=== PATIENT | male | born 1985 | race Caucasian/White ===

== ENCOUNTER 2021-05-20 12:16 | Emergency (ER) | payer OTHER, SELFPAY ==
--- NOTE | ~2021-05-20 | XR_ITS ---
EXAMINATION: XR SHOULDER, LEFT CLINICAL INFORMATION: Question dislocation COMPARISON: None TECHNIQUE: Three views of the left shoulder. FINDINGS: Visualized portion of the proximal left humerus demonstrate no fracture. Humeral head demonstrates good articulation with the glenoid fossa. Acromioclavicular joint is normal in appearance. Visualized left-sided ribs and lung parenchyma are unremarkable. XR/XR shoulder LT min 2V IMPRESSION: No fracture or dislocation of the left shoulder.
[2021-05-20 12:19] VITALS: BP 121/72; PULSE 70; RESP 18; TEMP 36.7; O2SAT 100; BMI 25.8
--- NOTE | 2021-05-20 13:44 | ED_ITS ---
HPI - Extremity Problem General Chief complaint: Extremity Injury, Upper Stated complaint: dislocated shoulder Time Seen by Provider: 05/20/21 13:44 History of Present Illness HPI Narrative: Patient 35 years old presents today with having pain to the left shoulder area. Patient fell in the rain yesterday. Complained that the shoulder might have been dislocated. He felt that he might have popped it back in. No numbness in the hand. No finger numbness. No weakness. No alteration in sensation there is pain over the shoulder. Worsen with movement. Patient from home. No head injury. No neck pain. No loss of consciousness. No nausea no vomiting. Patient from home. Related Data Previous Rx's Medication Instructions Recorded ibuprofen 400 mg tablet 400 mg PO Q6H PRN #20 tab 05/20/21 Allergies Allergy/AdvReac Type Severity Reaction Status Date / Time amoxicillin [From AUGMENTIN] Allergy Unknown UNKNOWN Unverified 03/24/20 15:38 cefaclor [From CECLOR] Allergy Unknown UNKNOWN Unverified 03/24/20 15:38 clavulanic acid Allergy Unknown UNKNOWN Unverified 03/24/20 15:38 [From AUGMENTIN] erythromycin base Allergy Unknown UNKNOWN Unverified 03/24/20 15:38 [ERYTHROMYCIN BASE] Review of Systems Review of Systems: No fever no chills no cough no congestion or upper resp iratory symptoms No nausea no vomiting no head injury All systems reviewed otherwise negative Yes all other systems are reviewed and are negative [facility] Past Medical History Attestation statement: The following information was validated with the patient. Social History Social History Advance Directives: No Advance Directives Information Provided: No Physical Exam Vital Signs: Vital Signs: Last Vital Signs Temp 98.1 F 05/20/21 12:19 Pulse 70 05/20/21 12:19 Resp 18 05/20/21 12:19 BP 121/72 05/20/21 12:19 Pulse Ox 100 05/20/21 12:19 Body Mass Index 25.8 Appearance: Alert. Oriented X3. No acute distress. Eyes: Pupils equal, round and reactive to light. ENT: Pharynx normal. Neck: Normal inspection. Neck supple. No lymph nodes noted. No crepitus CVS: Normal heart rate and rhythm. Pulses normal. Normal S1 and S2 Respiratory: No respiratory distress. Breath sounds normal. No Wheezing. No rales Abdomen: Soft and nontender. No rigidity. No distention. good BS x4 Skin: Skin warm and dry. Normal skin color. Normal skin turgor. Extremities: No lower extremity edema. Neurovascular intact to all extremities. No Lacerations. No Rash. Sensation over the left shoulder grossly intact. Sensation over the radial ulnar and median nerve intact. Good range of motion at the elbow at the wrist at the hands. Capillary refill less than 2 seconds pulse 2 + at radial. There is pain on movement of the left shoulder. On AP duction 80 duction internal and external rotation. Neuro: Oriented X 3. No motor deficit. No sensory deficit. Moving all extermities. No slurred speech MDM - Extremity (Nontraumatic) MDM Narrative Medical decision making narrative: X-ray did not show any acute fracture. There is no gross deformity on exam. There is no dislocation on x-ray. Will discharge patient home. Question if patient reduced the shoulder himself. Will have patient follow-up with orthopedics on an outpatient basis. Patient is in stable condition. Discharge Plan Discharge Clinical Impression: Shoulder sprain Patient Disposition: Home, Self-Care Instructions: Shoulder Sprain (ED) Prescriptions: New ibuprofen 400 mg tablet 400 mg PO Q6H PRN (Reason: pain) Qty: 20 RF: 0 Referrals: Denisha Ballard MD [Physician] - 2 days
== END 2021-05-20 14:00 | disposition home or self-care (01) ==
PROVIDERS: Emergency Provider Emergency Medicine Emergency Medical Services
DX: S43.402A Unspecified sprain of left shoulder joint, initial encounter (principal); W01.0XXA Fall on same level from slipping, tripping and stumbling without subsequent striking against object, initial encounter; Y93.9 Activity, unspecified; Y92.9 Unspecified place or not applicable; Y99.9 Unspecified external cause status; Z79.899 Other long term (current) drug therapy
CPT/HCPCS: 73030; 99283; 99284

== ENCOUNTER → 2021-05-30 08:29 | Outpatient (BNVA) | payer OTHER, SELFPAY | PROVIDERS: Visit Provider Physician Assistant | DX: M25.312 Other instability, left shoulder (principal) | CPT/HCPCS: 99202 ==

== ENCOUNTER 2021-06-21 13:55 | Outpatient (REF) | payer OTHER, SELFPAY ==
--- NOTE | ~2021-06-21 | FL_ITS ---
PROCEDURE: FL XR ARTHROGRAM SHOULDER, LEFT CLINICAL INFORMATION: Left shoulder instability. COMPARISON: None TECHNIQUE: Left shoulder intra-articular injection for MRI. FINDINGS: Informed consent was obtained from the patient prior to the procedure. During this process, the procedure and potential alternatives were explained, along with the intended outcome and benefits. The risks of the procedure, as well as the risk of not doing the procedure, were discussed. The patient was given the opportunity to ask questions regarding the procedure and appeared competent to make medical decisions. A signed consent form which documents this discussion was placed in the medical record. Using sterile technique and fluoroscopic guidance, a 22-gauge spinal needle was directed down onto the inferior aspect of the left glenohumeral joint. Small amount of contrast was injected demonstrating intra-articular positioning of the needle. Following that, 20 mL of a mixture of 20 mL of sterile saline and 0.05 mL of Gadavist was placed into the shoulder joint. Patient tolerated the procedure without difficulty. FLUOROSCOPY TIME: 1 minute. DOSE AREA PRODUCT: 2.718 Gy-cm2 (ernandez-centimeter squared). FL/FL arthrogram shoulder LT IMPRESSION: Left shoulder intra-articular injection for MRI.
--- NOTE | ~2021-06-21 | MR_ITS ---
EXAMINATION: MR SHOULDER WITH CONTRAST, LEFT CLINICAL INFORMATION: Left shoulder pain and instability. Dislocation on 05/19/2021. COMPARISON: Left shoulder radiographs dated 05/20/2021 and fluoroscopic arthrography done earlier the same day. TECHNIQUE: MRI of the shoulder was performed following the intra-articular administration of a dilute gadolinium-containing solution (arthrogram) on a high-field scanner. FINDINGS: ROTATOR CUFF: No measurable rotator cuff tendon defect. No muscle atrophy or fatty infiltration. BICEPS: Normal. CORACOACROMIAL ARCH: The undersurface of the acromion is curved with no subacromial spur. The acromioclavicular joint is normal. LABRUM/CAPSULE: There is a displaced fracture at the anteroinferior aspect of the glenoid and extending through the inferior glenoid. The fracture fragment is displaced inferiorly and measures up to 2.7 cm in craniocaudal dimension. There is associated attenuation and irregularity of the overlying labrum as well as labral tissue associated with the displaced fracture. Findings are consistent with a bony Bankart lesion. There is a nondisplaced tear through the posterior and posteroinferior labrum. The joint capsule is intact. GLENOHUMERAL JOINT/MARROW: Cortical depression at the posterolateral aspect of the humeral head measuring 2.2 x 3 cm with mild underlying marrow edema, consistent with a Hill-Sachs deformity. Humeral head currently well seated within the glenoid. MR/MR shoulder LT w con IMPRESSION: Findings consistent with prior anteroinferior humeral head dislocation including an osseous Bankart lesion with a fracture fragment displaced inferiorly measuring up to 2.7 cm. There is an associated labral tissue with the osseous fragment as well as irregular tearing of the nondisplaced labral tissue. Prominent Hill-Sachs deformity with mild underlying marrow edema. Humeral head currently well seated within the glenoid. Additional nondisplaced undersurface tear of the posterior and posteroinferior labrum.
== END 2021-06-21 13:56 | disposition home or self-care (01) ==
LOC: HO.XRAY 13:55
PROVIDERS: Visit Provider Physician Assistant
DX: M25.312 Other instability, left shoulder (principal)
CPT/HCPCS: 23350; 73040; 73222; A9585

== ENCOUNTER 2021-06-29 08:15 | Outpatient (REF) | payer OTHER, SELFPAY ==
[2021-06-29 11:49] LABS: COVID-19 Test Positive (Negative)
== END 2021-06-29 08:16 | disposition home or self-care (01) ==
LOC: HO.LAB 08:15
PROVIDERS: Visit Provider Internal Medicine
DX: Z20.822 Contact with and (suspected) exposure to COVID-19 (principal)
CPT/HCPCS: 36415; 87635; C9803

== ENCOUNTER 2022-03-09 19:15 | Emergency (ER) | payer OTHER, SELFPAY ==
--- NOTE | 2022-03-09 | ECG_ITS ---
Test Reason : sob Blood Pressure : / mmHG Vent. Rate : 075 BPM Atrial Rate : 075 BPM P-R Int : 184 ms QRS Dur : 090 ms QT Int : 368 ms P-R-T Axes : 062 064 035 degrees QTc Int : 410 ms Normal sinus rhythm Normal ECG No previous ECGs available Referred By: Generic ED Physician Electronically Signed By:JALYN PINEDA
--- NOTE | ~2022-03-09 | CT_ITS ---
EXAMINATION: CT CHEST WITHOUT CONTRAST CLINICAL INFORMATION: Cough. Shortness of breath. COMPARISON: Chest x-ray dated 03/09/2022 TECHNIQUE: Multidetector volumetric CT imaging of the chest was done. Axial MIP volume rendering provided. Sagittal and coronal reformatted images were obtained. This CT examination was performed using dose optimization techniques as appropriate, variously including the following: *Automated exposure control *Adjustment of mA and/or kV according to patient size (this includes techniques or standardized protocols for targeted exams where dose is matched to indication/reason for exam; i.e. extremities or head) *Use of iterative reconstruction technique DLP: 329 mGy-cm FINDINGS: LUNGS: Scattered secretions within the right lower lobe bronchioles with accompanying centrilobular and tree-in-bud nodular opacities suggestive of infectious and/or aspiration bronchiolitis. No pneumothorax. MEDIASTINUM: The mediastinum is normal. PLEURA: There is no pleural effusion. No pleural mass or thickening. AXILLA: No lymphadenopathy. UPPER ABDOMEN: Unremarkable. OSSEOUS STRUCTURES: Unremarkable. CT/CT chest wo IV con IMPRESSION: Findings compatible with infectious and/or aspiration bronchiolitis within the right lower lobe.
--- NOTE | ~2022-03-09 | XR_ITS ---
EXAMINATION: XR CHEST CLINICAL INFORMATION: Shortness of breath with chest pain COMPARISON: None TECHNIQUE: 2 views of the chest were obtained. FINDINGS: Some mild increase infrahilar opacity in the right. Area of infiltrate here would need to be considered. Left lung is grossly clear. The cardiac silhouette is within normal limits. The hilar regions do not appear pathologically enlarged. The cardiac silhouette is within normal limits. XR/XR chest 2V IMPRESSION: Findings suggest infrahilar infiltrate on the right. Follow-up films would be recommended after treatment to establish baseline.
[2022-03-09 19:25] VITALS: BP 114/67; PULSE 72; RESP 18; TEMP 36; O2SAT 99; BMI 26.5
[2022-03-09 19:48] LABS: MANUAL DIFF FLAG NO
[2022-03-09 19:51] LABS: Basophils Percent Auto 0.3 % (0-2); Eosinophils Percent Auto 0.2 % (0-4); Hematocrit 42.2 % (42.0-52.0); Hemoglobin 14.2 g/dl (14.0-18.0); Imm Gran Abs Auto 0.03 X10*3/uL (0.00-0.03); Imm Gran Pct Auto 0.3 % (0.0-0.4); Lymphocytes Absolute Auto 1.3 X10*3/uL (1.2-4.9); Lymphocytes Percent Auto 12.9 % (20-40); Mean Corpuscular HGB Conc 33.6 g/dl (31.0-36.0); Mean Corpuscular Hemoglobin 31.1 pg (27.0-33.0); Mean Corpuscular Volume 92.3 fL (80.0-98.0); Mean Platelet Volume 8.5 fL (9.4-12.4); Monocytes Absolute Auto 0.6 X10*3/uL (0.1-1.2); Monocytes Percent Auto 5.4 % (2-11); Neutrophils Absolute Auto 8.3 x10*3/uL (2.0-8.3); Neutrophils Percent Auto 80.9 % (45-73); Platelet Count 266 X10*3/uL (160-400); Red Blood Count 4.57 X10*6/uL (4.60-5.80); Red Cell Distribution Width 12.3 % (11.0-16.0); White Blood Count 10.3 X10*3/uL (4.8-10.8)
[2022-03-09 20:08] LABS: Alanine Aminotransferase 17 U/L (0-40); Albumin Level 4.3 g/dL (3.5-5.0); Alkaline Phosphatase 74 U/L (39-117); Anion Gap 17 (12-20); Aspartate Amino Transferase 16 U/L (5-37); Bilirubin Total 0.9 mg/dL (0.0-1.0); Blood Urea Nitrogen 12 mg/dL (9-16); Calcium 9.6 mg/dL (8.4-10.2); Carbon Dioxide 28 mmol/L (22-29); Chloride 102 mmol/L (96-108); Creatinine Clr Calc Pharmacy 105.4; Estimated Glomerular Filt Rate > 60; Glucose Random 137 mg/dL (60-115); Potassium 3.9 mmol/L (3.3-5.1); Sodium 143 mmol/L (135-145); Total Protein 7.4 g/dL (6.5-8.0)
[2022-03-09 21:56] VITALS: BP 121/69; PULSE 63; RESP 18; TEMP 36.3; O2SAT 98
[2022-03-09 22:05] LABS: Troponin-I High Sensitivity < 3.5 ng/L (<3.5-35.0)
--- NOTE | 2022-03-09 23:13 | PC.NURSE ---
COVID swab and d-dimer collected and sent as ordered
[2022-03-09 23:30] LABS: D Dimer High Sensitivity < 150 NG/ML
[2022-03-09] MEDS: Benzonatate 100 MG CAPSULE 200 MG PO (23:34)
--- NOTE | 2022-03-09 23:34 | ED.CHESTPAIN ---
HPI - Chest Pain General Chief Complaint: Chest Pain Stated Complaint: Chest pain Time Seen by Provider: 03/09/22 22:52 Source: patient Mode of arrival: ambulatory History of Present Illness HPI narrative: 36-year-old male without significant past medical history who arrives with complaints right-sided chest discomfort but has not been associated with fever, chills, unexplained weight loss, history of cigarette smoking and is up-to-date on all vaccines. 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 Patient states that he was seen on Saturday and the chest x-ray was negative, he was then started on steroids since Saturday but states that his cough has just progressively worsened despite treating it with honey and Delsym. Otherwise, patient does not any complaints other than poor sleeping due to the nighttime cough. Patient states that he feels short of breath and at times feels that he is unable to complete sentences. Related Data Previous Rx's Medication Instructions Recorded ibuprofen 400 mg tablet 400 mg PO Q6H PRN pain #20 tabs 05/20/21 benzonatate 200 mg capsule 200 mg PO TID PRN cough #14 caps 03/10/22 doxycycline hyclate 100 mg tablet 100 mg PO BID 5 days #10 tabs 03/10/22 Allergies Allergy/AdvReac Type Severity Reaction Status Date / Time amoxicillin [From AUGMENTIN] Allergy Unknown UNKNOWN Verified 05/30/21 08:38 cefaclor [From CECLOR] Allergy Unknown UNKNOWN Verified 05/30/21 08:38 clavulanic acid Allergy Unknown UNKNOWN Verified 05/30/21 08:38 [From AUGMENTIN] erythromycin base Allergy Unknown UNKNOWN Verified 05/30/21 08:38 [ERYTHROMYCIN BASE] cefprozil Allergy Unknown Verified 03/09/22 19:25 Review of Systems Review of Systems: Pertinent positives and negatives as stated in HPI 10 point review of systems is otherwise negative. PMFSH Past Medical History Source: nursing notes reviewed Surgical History H/O lateral meniscus repair of left knee H/O lateral meniscus repair of right knee Social History Social History Alcohol intake: current Alcohol intake frequency: holidays/special occasions only Patient Tobacco Use Status: Never used Tobacco Use of substances other than those prescribed or required for medical reasons: No Advance Directives: No Current occupational status: employed Current occupation: lt handed[employer] Physical Exam Vital Signs: Vital Signs: Last Vital Signs Temp 97.3 F 03/09/22 21:56 Pulse 63 03/10/22 00:21 Resp 14 03/10/22 00:21 BP 113/65 03/10/22 00:21 Pulse Ox 96 03/10/22 00:21 O2 Del Method 03/10/22 00:21 BMI result Body Mass Index 26.5 VITAL SIGNS: Reviewed. GENERAL: Well developed, well nourished, in no acute distress. HEAD: Normocephalic/atraumatic EYES: PERRLA, EOMI EARS: Ext canals without abnormality OROPHARYNX: no oral lesions noted, posterior pharynx clear LUNGS: Normal breath sounds. No adventitious sounds or accessory muscle use. SpO2<98> CARDIOVASCULAR: Regular rate and rhythm without noted murmurs ABDOMEN: Soft, non-tender, non-distended with bowel sounds. MUSCULOSKELETAL: No tenderness, deformities, or effusions noted on gross inspection. EXTREMITIES: No cyanosis, clubbing or edema. SKIN: Inspection of the skin reveals no rashes NEUROLOGIC: Alert and oriented x 4. Strength and sensation to light touch were grossly intact x 4. Course Course Course Narrative: 36-year-old male with history and clinical presentation after review of all investigations possible pneumonia and lower clinical suspicion for PE, D-dimer is negative. Will proceed with CT scan as suspicion for pneumonia although patient has remained afebrile without chills. Review of all investigations family indicates that patient has a right lower lobe pneumonia likely secondary to secondary infection related to bronchiolitis. Patient received initial antibiotic treatment here in the emergency room and then will be discharged on remaining course. Patient was informed of all results and findings. MDM - Chest Pain Lab Data Result diagrams: 03/09/22 19:44 03/09/22 19:44 Labs: Lab Results 03/09/22 03/09/22 03/09/22 Range/Units 19:44 19:44 19:44 WBC 10.3 (4.8-10.8) X10*3/uL RBC 4.57 L (4.60-5.80) X10*6/uL Hgb 14.2 (14.0-18.0) g/dl Hct 42.2 (42.0-52.0) % MCV 92.3 (80.0-98.0) fL MCH 31.1 (27.0-33.0) pg MCHC 33.6 (31.0-36.0) g/dl RDW 12.3 (11.0-16.0) % Plt Count 266 (160-400) X10*3/uL MPV 8.5 L (9.4-12.4) fL Immature Gran % (Auto) 0.3 (0.0-0.4) % Neut % (Auto) 80.9 H (45-73) % Lymph % (Auto) 12.9 L (20-40) % Maury % (Auto) 5.4 (2-11) % Eos % (Auto) 0.2 (0-4) % Baso % (Auto) 0.3 (0-2) % Lymph # (Auto) 1.3 (1.2-4.9) X10*3/uL Maury # (Auto) 0.6 (0.1-1.2) X10*3/uL Eos # (Auto) 0.0 (0.0-0.4) X10*3/uL Baso # (Auto) 0.0 (0.0-0.2) X10*3/uL Abs Immat Gran (auto) 0.03 (0.00-0.03) X10*3/uL Absolute Neuts (auto) 8.3 (2.0-8.3) x10*3/uL Absolute Nucleated RBC 0.000 (0.0-0.012) X10*3/uL Nucleated RBC % (auto) 0.0 (0.0-0.2) /100WBC D-Dimer High Sensitivty NG/ML Sodium 143 (135-145) mmol/L Potassium 3.9 (3.3-5.1) mmol/L Chloride 102 (96-108) mmol/L Carbon Dioxide 28 (22-29) mmol/L Anion Gap 17 (12-20) BUN 12 (9-16) mg/dL Creatinine 1.01 (0.5-1.4) mg/dL Estim Creat Clear Calc 105.4 Estimated GFR > 60 Random Glucose 137 H (60-115) mg/dL Calcium 9.6 (8.4-10.2) mg/dL Total Bilirubin 0.9 (0.0-1.0) mg/dL AST 16 (5-37) U/L ALT 17 (0-40) U/L Alkaline Phosphatase 74 (39-117) U/L Troponin I High Sens < 3.5 (<3.5-35.0) ng/L Total Protein 7.4 (6.5-8.0) g/dL Albumin 4.3 (3.5-5.0) g/dL COVID-19 (MARCELLE) (Negative) COVID-19 Clin Com 03/09/22 03/09/22 Range/Units 23:10 23:11 WBC (4.8-10.8) X10*3/uL RBC (4.60-5.80) X10*6/uL Hgb (14.0-18.0) g/dl Hct (42.0-52.0) % MCV (80.0-98.0) fL MCH (27.0-33.0) pg MCHC (31.0-36.0) g/dl RDW (11.0-16.0) % Plt Count (160-400) X10*3/uL MPV (9.4-12.4) fL Immature Gran % (Auto) (0.0-0.4) % Neut % (Auto) (45-73) % Lymph % (Auto) (20-40) % Maury % (Auto) (2-11) % Eos % (Auto) (0-4) % Baso % (Auto) (0-2) % Lymph # (Auto) (1.2-4.9) X10*3/uL Maury # (Auto) (0.1-1.2) X10*3/uL Eos # (Auto) (0.0-0.4) X10*3/uL Baso # (Auto) (0.0-0.2) X10*3/uL Abs Immat Gran (auto) (0.00-0.03) X10*3/uL Absolute Neuts (auto) (2.0-8.3) x10*3/uL Absolute Nucleated RBC (0.0-0.012) X10*3/uL Nucleated RBC % (auto) (0.0-0.2) /100WBC D-Dimer High Sensitivty < 150 NG/ML Sodium (135-145) mmol/L Potassium (3.3-5.1) mmol/L Chloride (96-108) mmol/L Carbon Dioxide (22-29) mmol/L Anion Gap (12-20) BUN (9-16) mg/dL Creatinine (0.5-1.4) mg/dL Estim Creat Clear Calc Estimated GFR Random Glucose (60-115) mg/dL Calcium (8.4-10.2) mg/dL Total Bilirubin (0.0-1.0) mg/dL AST (5-37) U/L ALT (0-40) U/L Alkaline Phosphatase (39-117) U/L Troponin I High Sens (<3.5-35.0) ng/L Total Protein (6.5-8.0) g/dL Albumin (3.5-5.0) g/dL COVID-19 (MARCELLE) Negative (Negative) COVID-19 Clin Com See Note ECG Data ECG #1: Attestation: I personally reviewed and interpreted this ECG as follows: Prior ECG tracings: not available for review Interpretation: Normal sinus rhythm, HR-75, no STEMI, MI/QRS/QTC is within normal limits. Discharge Plan Discharge Clinical Impression: Pneumonia, Bronchiolitis Patient Disposition: Home, Self-Care Instructions: Pneumonia (ED) Additional Instructions: 1. Complete the entire course of antibiotics as prescribed. 2. Sleep at a somewhat inclined to help reduce the amount of nighttime cough, you have been provided with a prescription for cough suppressant. 3. Follow-up with your primary care provider after the holiday weekend. Return to the ER for worsening symptoms. Prescriptions: New doxycycline hyclate 100 mg tablet 100 mg PO BID 5 Days Qty: 10 0RF benzonatate 200 mg capsule 200 mg PO TID PRN (Reason: cough) Qty: 14 0RF No Action ibuprofen 400 mg tablet 400 mg PO Q6H PRN (Reason: pain) Qty: 20 0RF Referrals: Violeta Posada, SENIOR PORTFOLIO ANALYST [Primary Care Provider] -
[2022-03-09 23:38] LABS: COVID-19 Test Negative (Negative)
[2022-03-10 00:21] VITALS: BP 113/65; PULSE 63; RESP 14; O2SAT 96
[2022-03-10 01:36] VITALS: BP 105/73; PULSE 66; RESP 17; O2SAT 98
== END 2022-03-10 01:42 | disposition home or self-care (01) ==
PROVIDERS: Emergency Provider Student in an Organized Health Care Education/Training Program; PCP Nurse Practitioner Family
DX: J18.9 Pneumonia, unspecified organism (principal); J21.9 Acute bronchiolitis, unspecified; R05.9 Cough, unspecified; R06.02 Shortness of breath; R07.89 Other chest pain; Z20.822 Contact with and (suspected) exposure to COVID-19; Z79.899 Other long term (current) drug therapy
CPT/HCPCS: 36415; 71046; 71250; 80053; 84484; 85025; 85379; 87635; 93005; 99284; 99285